=== PATIENT | female | born 1945 | race Caucasian/White ===

== ENCOUNTER 2016-08-27 13:23 | Observation (INO) | payer BC ==
--- NOTE | ~2016-08-27 | OP ---
Record Of Operation [facility] [address] [place]. [address] NAME: PAGE THURSTON : 43 STATUS : DIS Annetat PAT#: [id number] AGE: 71 ADM/REG DATE : 08/27/16 MR#: [id number] REPORT SERV DATE: 09/05/16 DICTATED BY: RAFAEL ENCINAS DATE: 08/27/16 REPORT STATUS : Draft TRANSCRIBED BY: MODL DATE: 08/27/16 DATE OF PROCEDURE: 08/27/2016 REFERRING [facility] DIRECTOR: Dr. Tristan. PROCEDURES PERFORMED: 1. Aortogram. 2. Bilateral selective renal angiogram. 3. Angioplasty. 4. Stenting of the left renal artery. 5. Placement of a 4.5 x 15 Herculink Elite RX stent. 6. Successful Exoseal closure, right femoral artery. SHIP PILOT: Rafael Encinas M.D. INDICATIONS: Suspected severe left renal artery stenosis by ultrasound, under suboptimal control despite multiple medications, peripheral artery disease, carotid artery disease, status post endarterectomy, subclavian artery disease, coronary artery disease, status post 2 prior coronary artery bypass grafting operations, severe low-flow, low-gradient aortic stenosis, hypertension, hyperlipidemia, tobacco abuse. TECHNIQUE: After informed written consent was obtained from Ms. Thurston, she was brought to the cardiac catheterization laboratory in the afternoon of 08/27/2016 in the fasting state. The time-out was performed and correct patient and operative plan were confirmed. The right coronary artery was prepped and draped in the usual sterile fashion. Local anesthesia was accomplished using 1% lidocaine. Using modified Seldinger technique and a micropuncture set, a 4-Mexican sheath was placed in the right femoral artery. Femoral angiogram was obtained which demonstrated good stick in the common femoral artery thought suitable for closure. This appeared to be the lovelock artery in the common femoral artery and the bifurcation above the common femoral artery appeared to be graft material. Next, a 5-Mexican flush catheter was used in a single plane. Aortogram was performed above the level of the renal arteries. The catheter was then exchanged for 5-Mexican size 2 catheter and selective bilateral renal angiography was performed. At that time, decision was made to proceed with angioplasty of the left renal artery. It appeared the graft material arose below the level of the renal arteries. Next, the 5-Mexican sheath was exchanged for a 6-Mexican sheath which was double flushed and left in place. A 6-Mexican YI guiding catheter was engaged into the left renal artery. The patient was heparinized to an ACT of greater than 200. The lesion was wired using a Spartacore guidewire. A 4.0 x 15 Viatrac balloon was brought to the lesion site and serial inflation was performed with improved angiographic appearance. Next, a 4.5 x 15 mm Herculink Elite RX stent was brought to the lesion site and carefully positioned. The stent was then deployed at 11 atmospheres. The balloon was deflated and brought back 2 mm and postdilatation was performed to 14 atmospheres with complete balloon and stent expansion. The balloon was then deflated and removed from the body. Followup angiography confirmed good angiographic result. There was no evidence of dissection or distal embolization. The guidewire was removed and final angiogram was performed, which demonstrated good angiographic result. The guiding catheter was disengaged and removed from Record Of [address] [id number] NAME: PAGE THURSTON : 43 STATUS : DIS Annetta PAT#: [id number] AGE: 71 ADM/REG DATE : 08/27/16 MR#: [id number] REPORT SERV DATE: 09/05/16 DICTATED BY: RAFAEL ENCINAS DATE: 08/27/16 REPORT STATUS : Draft TRANSCRIBED BY: NAZ DATE: 08/27/16 the body over a guidewire. A 7-Mexican Exoseal closure device was used with good hemostasis. There was no bleeding and no hematoma at the conclusion of the procedure. She was then returned to her room in good condition for access management. She was asymptomatic at the conclusion of the procedure. RESULTS: The right renal artery is patent with approximately 50% irregular stenosis in its proximal portion. There is good washout of the right kidney. The right kidney appears large. The left renal artery is patent with approximately 80% proximal left renal artery stenosis. There is tortuosity of the left renal artery. There is good washout of the left kidney. The left kidney appears smaller than the right. The abdominal aorta appears to be lovelock in the region of the renal arteries, but graft material below that. ACCESS: Six-Mexican RFA. CLOSURE DEVICE: 7-Mexican Exoseal. ESTIMATED BLOOD LOSS: Less than 25 mL. FLUOROSCOPY TIME: 9.0 minutes. MGY: 769. CONTRAST: 95 mL. RESULTS: 1. 80% left renal artery stenosis. 2. 50% right renal artery stenosis. 3. Successful angioplasty and stenting of the left renal artery from 80% pre to 0% post. PATIENT DISPOSITION: Short-stay unit. RECOMMENDATIONS: 1. Aspirin and Plavix for least 1 month and aspirin indefinitely. 2. Risk factor modification. 3. Ultrasound followup. ADDENDUM: RENAL ANGIOPLASTY TECHNIQUE: IV moderate sedation was used. LIANNE/NAZ Rafael Encinas M.D. / [id number] Record Of [address] [address] NAME: PAGE THURSTON : 43 STATUS : DIS Annetta PAT#: [id number] AGE: 71 ADM/REG DATE : 08/27/16 MR#: [id number] REPORT SERV DATE: 09/05/16 DICTATED BY: RAFAEL ENCINAS DATE: 08/27/16 REPORT STATUS : Draft TRANSCRIBED BY: NAZ DATE: 08/27/16 CC: Thiago Tristan Jr., M.D.
[~2016-08-27 13:23] MED LIST: ACET500CAP PO; ASAB PO; CAT1 PO; DSS PO; FLONASE NAS; IRON325 MG PO; KLOR-CON M2020 MEQ PO; L20 PO; LIPITOR20 PO; MINITRAN0.2 MG/HR TOP; NITROSTAT0.4 MG SL; NORV5 PO; PRINZIDE1 TA1 PO; PROTONIX PO; SANI-SUPP1.5 GM PR; ZESTORETIC PO; ZETIA PO; ZOCOR20 PO
[2016-08-27 14:06] LABS: BASOPHILS 0.5 %; BASOPHILS ABSOLUTE 0.04 10/3/uL (0.0-0.16); EOSINOPHILS 1.2 %; EOSINOPHILS ABSOLUTE 0.09 10/3/uL (0.0-0.53); HEMATOCRIT 37.7 % (36.0-48.0); HEMOGLOBIN 12.7 g/dL (12.0-16.0); IMMATURE GRANULOCYTES 0.1 %; IMMATURE GRANULOCYTES ABSOLUTE 0.01 10/3/uL (0.0-0.11); LYMPHOCYTES 32.4 %; LYMPHOCYTES ABSOLUTE 2.39 10/3/uL (0.67-4.30); MEAN CORPUS HGB CONC 33.7 g/dL (32.0-36.0); MEAN CORPUSCULAR HEMOGLOB 31.4 pg (26.0-34.0); MEAN PLATELET VOLUME 9.1 fL (9.2-13.0); MONOCYTES 4.3 %; MONOCYTES ABSOLUTE 0.32 10/3/uL (0.21-1.20); NEUTROPHILS 61.5 %; NEUTROPHILS ABSOLUTE 4.53 10/3/uL (2.02-8.40); PLATELET COUNT 336 10/3/uL (150-400); RBC DISTRIBUTION WIDTH 15.3 % (12.0-16.0); RED CELL COUNT 4.04 10/6/uL (4.0-5.6); WHITE BLOOD CELLS 7.4 10/3/uL (4.5-10.5)
[2016-08-27 14:07] LABS: MANUAL DIFF NO %; MEAN CORPUSCULAR VOLUME 93.3 fL (80-100)
[2016-08-27 14:20] LABS: ALBUMIN 3.6 G/DL (3.5-5.0); CHLORIDE, SERUM 102 MMOL/L (96-112); CO2 (CARBON DIOXIDE) 33 MMOL/L (24-34); CREATININE 0.77 MG/DL (0.55-1.02); GFR AFRICAN AMERICAN 89 ML/MIN (>=60); GFR NON AFRICAN AMERICAN 77 ML/MIN (>=60); GLOBULIN 3.5 G/DL (2.5-4.1); GLUCOSE, SERUM 84 MG/DL (60-99); POTASSIUM, SERUM 3.6 MMOL/L (3.5-5.3); SGOT(AST) 20 U/L (5-40); SGPT(ALT) 23 U/L (5-65); SODIUM, SERUM 142 MMOL/L (135-148); TOTAL BILIRUBIN 0.8 MG/DL (0-1.2); TOTAL PROTEIN 7.1 G/DL (6.0-8.5)
[2016-08-27 14:21] LABS: ALKALINE PHOSPHATASE 75 U/L (45-117); BUN (BLOOD UREA NITROGEN) 14 MG/DL (6-23)
[2016-08-28 03:20] LABS: ASCORBIC ACID (UR NOT ORDER) NEG (NEG); BILIRUBIN, URINE NEGATIVE (NEG); KETONE, URINE NEGATIVE (NEG); LEUKOCYTE ESTERASE(NOT OR NEG (NEG); WBC (NOT ORDERED) (RFLEX) 1 (0-5)
[2016-08-28 04:49] LABS: ALKALINE PHOSPHATASE 65 U/L (45-117); BUN (BLOOD UREA NITROGEN) 11 MG/DL (6-23); CALCIUM, SERUM 8.4 MG/DL (8.5-10.4); CHLORIDE, SERUM 106 MMOL/L (96-112); CO2 (CARBON DIOXIDE) 29 MMOL/L (24-34); CREATININE 0.78 MG/DL (0.55-1.02); GFR AFRICAN AMERICAN 88 ML/MIN (>=60); GFR NON AFRICAN AMERICAN 76 ML/MIN (>=60); POTASSIUM, SERUM 3.4 MMOL/L (3.5-5.3); SGOT(AST) 17 U/L (5-40); SGPT(ALT) 19 U/L (5-65); SODIUM, SERUM 143 MMOL/L (135-148); TOTAL BILIRUBIN 0.5 MG/DL (0-1.2)
[2016-08-28 04:56] LABS: GLUCOSE, SERUM 119 MG/DL (60-99)
[2016-12-17] MEDS ORDERED: PLAVIX PO (10:32)
== END 2016-08-28 09:13 | disposition home or self-care (01) ==
LOC: CORLMH 13:23 → SSU2 13:28
PROVIDERS: Internal Medicine Cardiovascular Disease
PROC: B418ZZZ Fluoroscopy of Bilateral Renal Arteries (ICD-10-PCS; principal; 2016-08-27)
PROC: 047 Lower Arteries, Dilation (ICD-10-PCS; 2016-08-27)
DX: I70.1 Atherosclerosis of renal artery (principal); I10 Essential (primary) hypertension; I35.0 Nonrheumatic aortic (valve) stenosis; I25.10 Atherosclerotic heart disease of native coronary artery without angina pectoris; E78.5 Hyperlipidemia, unspecified; Z82.49 Family history of ischemic heart disease and other diseases of the circulatory system; Z95.1 Presence of aortocoronary bypass graft; Z79.82 Long term (current) use of aspirin; Z79.899 Other long term (current) drug therapy
CPT/HCPCS: 36252; 37236; 80053; 81001; 85025; 85347; 96374; 99152; 99153; A9270-GY; C1725; C1760; C1769; C1876; C1887; C1894; G0378; J2250; J3010; Q9966; Q9967